=== PATIENT | male | born 1930 | race Caucasian/White ===

== ENCOUNTER → 2017-08-02 | Outpatient (CLI) | payer MEDICARE ==
[~2017-08-02] MED LIST: CONTRAST GIVEN. MC; IOHEXOL 240 MG/ML 50ML VIAL. PO; IOHEXOL 300 MG/ML 100ML VIAL. IV
[2017-08-02 10:57] LABS: BLOOD UREA NITROGEN 13 mg/dL (8-26)
[2017-08-02 10:57] LABS: CREATININE 1.2 mg/dL (0.7-1.3); GFR 57.7
== END | disposition home or self-care (01) ==
LOC: CT 10:17
DX: K57.30 Diverticulosis of large intestine without perforation or abscess without bleeding (principal); K86.89 Other specified diseases of pancreas
CPT/HCPCS: 36415; 74177; 82565; 84520; Q9966; Q9967

== ENCOUNTER → 2019-04-11 | Outpatient (CLI) | payer MEDICARE ==
[~2019-04-11] MED LIST changes: -CONTRAST GIVEN. MC; -IOHEXOL 240 MG/ML 50ML VIAL. PO; +IOHEXOL 240 MG/ML 50ML VIAL. PO ONE; -IOHEXOL 300 MG/ML 100ML VIAL. IV
--- NOTE | 2019-04-12 07:11 | RAD ---
CT abdomen pelvis with oral contrast only Indication: Left abdominal pain and distention Technique: Noncontrast CT imaging was performed of the abdomen pelvis, multiplanar reconstruction images submitted. Oral contrast was given. One or more of the following individualized dose reduction techniques were utilized for this examination: 1. Automated exposure control 2. Adjustment of the mA and/or kV according to patient size 3. Use of iterative reconstruction technique. Comparison: August 02, 2017 Findings: There has been a median sternotomy. There is no pleural fluid at the visualized lung bases. There is some reticular likely fibrotic change of the left lower lobe near the base and to lesser degree on the right lower lobe as seen previously. No focal abnormality is identified of the liver, pancreas, or spleen allowing for noncontrast technique. There has been cholecystectomy. There is similar fullness of the left adrenal gland with possible underlying 1.6 m nodule unchanged, density measurements suggestive of adenoma 6 Hounsfield units. There is no right adrenal nodularity. There is no hydronephrosis or renal calculus. There is again aortobiiliac stent graft. Maximal dimension of aneurysm sac of the infrarenal distal abdominal aorta is about 4.8 cm AP by 4.4 cm transverse, similar. There is appearance of circumferential prominence of urinary bladder stanton, although the urinary bladder not well distended. There is again small fat-containing periumbilical hernia without internal bowel, transverse dimension of hernia sac and hernia neck about 1.5 cm. Bowel is not significantly dilated. There is no free fluid or free air. There is no significant inflammatory type change about the bowel. There is multilevel lumbar facet degenerative change. There is multilevel thoracolumbar degenerative disc disease and spondylosis. There is moderate to severe spinal stenosis at L3-4 and to a somewhat lesser degree at L2-3 and L1-2, also other variable lateral recess stenosis. There is multilevel lumbar neural foramina compromise, severe narrowing most notable left greater than right at L1-2 and bilaterally at L5-S1 although various narrowing at other levels, also variable inferior thoracic neural foramina compromise. There are prostate calcifications and mild prostatomegaly. IMPRESSION: 1. There is no significant inflammatory type change about the bowel, no evidence of bowel obstruction. 2. There is stable aortobiiliac stent graft and infrarenal abdominal aortic aneurysm sac. 3. There is multilevel lumbar degenerative disc disease, spondylosis, and facet degenerative change. There is multilevel spinal stenosis of lumbar spine, also multilevel thoracolumbar neural foramina compromise. 4. There is appearance of prominence of urinary bladder stanton, cystitis not excluded although findings could be due to under distention. Electronically signed by: Krunal Terry MD (04/12/2019 7:08 AM) [id number]
== END | disposition home or self-care (01) ==
LOC: CT 11:35
PROVIDERS: ATTEND Family Medicine
DX: K42.9 Umbilical hernia without obstruction or gangrene (principal); I71.4 Abdominal aortic aneurysm, without rupture; M47.816 Spondylosis without myelopathy or radiculopathy, lumbar region; M51.34 Other intervertebral disc degeneration, thoracic region; M47.814 Spondylosis without myelopathy or radiculopathy, thoracic region; M48.061 Spinal stenosis, lumbar region without neurogenic claudication; N42.89 Other specified disorders of prostate; Z90.49 Acquired absence of other specified parts of digestive tract
CPT/HCPCS: 74176

== ENCOUNTER → 2020-09-01 | Outpatient (CLI) | payer MEDICARE ==
[2019-04-16 11:00] VITALS: BP 116/74
--- NOTE | 2020-09-01 16:22 | RAD ---
Left lower extremity venous duplex study Clinical History: Lower extremity pain Technique: Using a combination of real time ultrasound imaging and color-flow and pulse Doppler imagi ng techniques, including spectral analysis, graded compression and augmentation, duplex evaluation of the deep venous system of the left lower extremity was performed. Multiple images were obtained. Findings: There is no sonographic evidence of deep venous thrombosis involving the visualized deep ve nous structures of the left lower extremity Impression: No evidence of deep venous thrombosis involving the left lower extremity Electronically signed by: Juan Luis Marin MD (09/01/2020 4:20 PM) [id number]
== END ==
LOC: US 15:13
PROVIDERS: ATTEND Internal Medicine Hematology & Oncology
DX: Z08 Encounter for follow-up examination after completed treatment for malignant neoplasm (principal)
CPT/HCPCS: 93971

== ENCOUNTER → 2020-09-01 | Outpatient (CLI) | payer MEDICARE ==
[2019-04-16 11:00] VITALS: BP 116/74
[2020-09-01 15:19] LABS: BASO # 0.1 x10^3/uL (0.0-0.2); BASO % 1 % (0-3); EOS # 0.1 x10^3/uL (0.0-0.7); EOS % 1 % (0-3); HEMATOCRIT 32.1 % (39.0-53.0); HEMOGLOBIN 10.3 g/dL (13.0-17.5); LYMPH # 2.3 x10^3/uL (1.0-4.8); LYMPH % 29 % (24-48); MEAN CORPUSCULAR HEMOGLOBIN 26 pg (25-35); MEAN CORPUSCULAR HGB CONC 32 g/dL (31-37); MEAN CORPUSCULAR VOLUME 80 fL (79-100); MONO # 0.6 x10^3/uL (0.0-1.1); MONO % 8 % (0-9); NEUT # 4.9 x10^3/uL (1.8-7.7); NEUT % 61 % (31-73); PLATELET COUNT 208 x10^3/uL (140-400); RED BLOOD COUNT 4.01 x10^6/uL (4.30-5.70); RED CELL DISTRIBUTION WIDTH 21.2 % (11.5-14.5)
[2020-09-01 15:46] LABS: ALBUMIN 3.1 g/dL (3.4-5.0); ALBUMIN/GLOBULIN RATIO 0.9 (1.0-1.7); CALCIUM 8.8 mg/dL (8.5-10.1); CREATININE 1.2 mg/dL (0.7-1.3); GFR 57.3; POTASSIUM 3.7 mmol/L (3.5-5.1); TOTAL BILIRUBIN 0.5 mg/dL (0.2-1.0); TOTAL PROTEIN 6.7 g/dL (6.4-8.2)
[2020-09-01 18:55] LABS: ANISOCYTOSIS MOD; HYPOCHROMIA SLIGHT; OVALOCYTES FEW; PLT ESTIMATE ADEQUATE (ADEQUATE); POLYCHROMASIA SLIGHT
== END ==
LOC: ONCLAB 14:01
PROVIDERS: ATTEND Internal Medicine Hematology & Oncology
DX: C18.9 Malignant neoplasm of colon, unspecified (principal); M79.605 Pain in left leg; M79.89 Other specified soft tissue disorders
CPT/HCPCS: 36415; 80053; 82378; 83615; 85025; 93971

== ENCOUNTER → 2020-12-09 | Outpatient (CLI) | payer MEDICARE ==
[2019-04-16 11:00] VITALS: BP 116/74
[2020-12-09 14:35] LABS: CALCIUM 8.4 mg/dL (8.5-10.1); CREATININE 1.4 mg/dL (0.7-1.3); GFR 47.8
[2020-12-09 14:36] LABS: BASO # 0.1 x10^3/uL (0.0-0.2); BASO % 2 % (0-3); EOS # 0.1 x10^3/uL (0.0-0.7); EOS % 1 % (0-3); HEMOGLOBIN 9.5 g/dL (13.0-17.5); LYMPH # 2.3 x10^3/uL (1.0-4.8); LYMPH % 34 % (24-48); MEAN CORPUSCULAR HEMOGLOBIN 24 pg (25-35); MEAN CORPUSCULAR HGB CONC 32 g/dL (31-37); MEAN CORPUSCULAR VOLUME 77 fL (79-100); MONO # 0.5 x10^3/uL (0.0-1.1); MONO % 7 % (0-9); NEUT # 3.8 x10^3/uL (1.8-7.7); NEUT % 56 % (31-73); PLATELET COUNT 174 x10^3/uL (140-400); RED BLOOD COUNT 3.91 x10^6/uL (4.30-5.70); WHITE BLOOD COUNT 6.7 x10^3/uL (4.0-11.0)
[2020-12-09 14:45] LABS: ALBUMIN 3.2 g/dL (3.4-5.0); ALBUMIN/GLOBULIN RATIO 0.8 (1.0-1.7); TOTAL BILIRUBIN 0.5 mg/dL (0.2-1.0); TOTAL PROTEIN 7.1 g/dL (6.4-8.2)
== END ==
LOC: ONCLAB 13:43
PROVIDERS: ATTEND Internal Medicine Hematology & Oncology
DX: C18.0 Malignant neoplasm of cecum (principal)
CPT/HCPCS: 36415; 80053; 82378; 82728; 83540; 83550; 85025

== ENCOUNTER → 2020-12-15 | Outpatient (CLI) | payer MEDICARE ==
[2019-04-16 11:00] VITALS: BP 116/74
[~2020-12-15] MED LIST changes: +IOHEXOL 300 MG/ML 100ML VIAL. IV ONE
--- NOTE | 2020-12-15 14:52 | RAD ---
CT of the chest, abdomen, and pelvis 12/15/2020 INDICATION: History of colon cancer. COMPARISON STUDY: CT of the abdomen and pelvis with contrast every 2019. CT of the chest abdomen and pelvis February 17, 2009. TECHNIQUE: Multidetector CT imaging of the chest, abdomen, and pelvis was performed following the adm inistration of contrast. FINDINGS: Heart is enlarged. Dense coronary calcification noted. No pericardial effusion is seen. Bor derline precarinal lymph node noted measuring approximately 1.3 x 2.3 cm. There is no pneumothorax. M ild intralobular septal thickening is seen. There is small right pleural effusion. Minimal areas of g roundglass opacity are seen. Findings may represent mild edema in the setting of congestive failure. Postoperative changes following endovascular repair of abdominal aortic aneurysm. Aneurysm sac is vivian ssly stable. No free fluid or free air seen in the abdomen or pelvis. There is been resection of the proximal colon. There is no bowel obstruction. No acute inflammatory changes involving the visualized bowel are identified. No acute osseous changes are seen. IMPRESSION: 1.Borderline enlargement of a precarinal lymph node, most likely reactive. Attention on follow-up rec ommended. Otherwise no evidence of recurrent or metastatic disease involving the chest abdomen or pel vis. 2. Small right pleural effusion with possible mild interstitial edema in the setting of cardiomegaly. Findings may relate to mild congestive failure. 3. Grossly stable appearance of postoperative changes following endovascular repair of abdominal aort ic aneurysm. CT DOSING PQRS STATEMENT: One or more of the following individualized dose reduction techniques were utilized for this examinat ion: 1. Automated exposure control 2. Adjustment of the mA and/or kV according to patient size 3. Use of iterative reconstruction technique Electronically signed by: Juan Luis Marin MD (12/15/2020 2:49 PM) [id number]
== END ==
LOC: CT 09:06
PROVIDERS: ATTEND Internal Medicine Hematology & Oncology
DX: C18.0 Malignant neoplasm of cecum (principal); J90 Pleural effusion, not elsewhere classified; I51.7 Cardiomegaly; I25.10 Atherosclerotic heart disease of native coronary artery without angina pectoris
CPT/HCPCS: 71260; 74177; Q9966; Q9967

== ENCOUNTER 2021-01-21 09:25 | Emergency (ER) | payer OTHER, MEDICARE ==
[~2021-01-21] VITALS: Ht 177.8 cm; Wt 106.0 kg
[2021-01-21 09:37] VITALS: BP 154/90
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
[2021-01-21 10:29] LABS: BASO # 0.1 x10^3/uL (0.0-0.2); BASO % 1 % (0-3); EOS % 1 % (0-3); HEMATOCRIT 28.7 % (39.0-53.0); LYMPH # 1.5 x10^3/uL (1.0-4.8); LYMPH % 23 % (24-48); MEAN CORPUSCULAR HEMOGLOBIN 24 pg (25-35); MEAN CORPUSCULAR HGB CONC 32 g/dL (31-37); MEAN CORPUSCULAR VOLUME 75 fL (79-100); MONO # 0.5 x10^3/uL (0.0-1.1); MONO % 8 % (0-9); NEUT # 4.4 x10^3/uL (1.8-7.7); NEUT % 67 % (31-73); PLATELET COUNT 185 x10^3/uL (140-400); RED BLOOD COUNT 3.82 x10^6/uL (4.30-5.70); RED CELL DISTRIBUTION WIDTH 19.3 % (11.5-14.5); WHITE BLOOD COUNT 6.5 x10^3/uL (4.0-11.0)
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
[2021-01-21 10:43] LABS: CALCIUM 8.2 mg/dL (8.5-10.1); CREATININE 1.2 mg/dL (0.7-1.3); GFR 57.1; POTASSIUM 3.8 mmol/L (3.5-5.1)
[2021-01-21] MEDS ORDERED: IOHEXOL 300 MG/ML 100ML VIAL. IV ONE (10:45)
[2021-01-21 10:49] LABS: ALBUMIN 2.9 g/dL (3.4-5.0); ALBUMIN/GLOBULIN RATIO 0.8 (1.0-1.7); TOTAL BILIRUBIN 0.5 mg/dL (0.2-1.0); TOTAL PROTEIN 6.5 g/dL (6.4-8.2)
[2021-01-21] MEDS ORDERED: CONTRAST GIVEN. MC PRN (11:00)
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
[2021-01-21 13:11] LABS: BILIRUBIN,URINE NEGATIVE (NEG); CLARITY,URINE CLEAR; COLOR,URINE YELLOW; NITRITE,URINE NEGATIVE (NEG); PROTEIN,URINE NEGATIVE (NEG-TRACE)
[2021-01-21 13:15] LABS: BACTERIA,URINE 0 /HPF (0-FEW); RBC,URINE 0 /HPF (0-2); WBC,URINE OCC /HPF (0-4)
== END 2021-01-21 13:42 | disposition home or self-care (01) ==
LOC: ER 09:25
DX: M25.532 Pain in left wrist (principal); M54.50 Low back pain, unspecified; G89.11 Acute pain due to trauma; M54.2 Cervicalgia; M79.605 Pain in left leg; Z87.891 Personal history of nicotine dependence; Z88.5 Allergy status to narcotic agent; V49.49XA Driver injured in collision with other motor vehicles in traffic accident, initial encounter; Y93.89 Activity, other specified; Y92.488 Other paved roadways as the place of occurrence of the external cause; Y99.8 Other external cause status
CPT/HCPCS: 36415; 70450; 71260; 72125; 73120; 73130; 74177; 80053; 81001; 85025; 99285; Q9967